=== PATIENT | male | born 1990 | race Caucasian/White ===

== ENCOUNTER 2018-09-16 23:01 | Emergency (ER) | payer OTHER ==
[~2018-09-16] VITALS: Ht 170.2 cm; Wt 63.5 kg
[~2018-09-16 23:01] MED LIST: IBUP600 PO; METPHE18ER; Zofran Odt4 MG PO
== END 2018-09-17 03:40 | disposition home or self-care (01) ==
LOC: ER 23:01
DX: S01.02XA Laceration with foreign body of scalp, initial encounter (principal); S20.211A Contusion of right front wall of thorax, initial encounter; M25.511 Pain in right shoulder; V47.6XXA Car passenger injured in collision with fixed or stationary object in traffic accident, initial encounter; F17.210 Nicotine dependence, cigarettes, uncomplicated
CPT/HCPCS: 71046; 73030; 90714; 99284-25; A9270; A9270-GY

== ENCOUNTER 2019-10-02 12:16 | Day surgery (SDC) | payer OTHER ==
[~2019-10-02] VITALS: Ht 172.7 cm; Wt 60.3 kg
--- NOTE | 2019-10-02 15:23 | NUR ---
10/02/19 1523 Isabel Saavedra PATIENT C/O PAIN 8 AND DESCRIBES THIS PAIN IN HIS ANKLE AND LOWER CALF AREA THAT FEELS LIKE TGHE SPLINT IS TOO TIGHT. I DID LOOSEN UP THE MARIMAR WRAP ON THE CALF JUST SLIGHTLY TO TRY AND HELP THE PATIENT. PAIN MEDS GIVEN PER MD ORDERS AND ONCE THE MEDICATIONS HAVE BEEN GIVEN THE PATIENT TELLS ME HE HAD PRIOR ADDICTION TO PAIN MEDS AND DOESN'T WANT TO HAVE A PROBLEM AGAIN, I INSTRUCT AND ATTEMPT TO TEACH THE PATIENT TO ONLY USE NEEDED AND TO DISCUSS THIS WITH THE DOCTOR ON HIS FOLLOW UP APPOINTMENT. PATIENT VERBALIZES UNDERSTANDING
== END 2019-10-02 15:39 | disposition home or self-care (01) ==
LOC: ORSCSDS 12:16
PROVIDERS: Podiatrist Foot & Ankle Surgery
PROC: 0LQW0ZZ Repair Left Foot Tendon, Open Approach (ICD-10-PCS; principal; 2019-10-02 14:15)
PROC: 0KT Muscles, Resection (ICD-10-PCS; principal; 2019-10-02 14:15)
DX: S86.392A Other injury of muscle(s) and tendon(s) of peroneal muscle group at lower leg level, left leg, initial encounter (principal); S92.325D Nondisplaced fracture of second metatarsal bone, left foot, subsequent encounter for fracture with routine healing; S92.335D Nondisplaced fracture of third metatarsal bone, left foot, subsequent encounter for fracture with routine healing; F17.210 Nicotine dependence, cigarettes, uncomplicated
CPT/HCPCS: J0171; J0690; J1100; J1885; J2250; J2405; J2704; J3010; J7120